=== PATIENT | male | born 2000 | race Caucasian/White ===

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

== ENCOUNTER 2023-01-23 05:22 | Emergency (ER) | payer BC, SELFPAY ==
[2023-01-23 05:24] VITALS: BP 134/94; PULSE 86; RESP 17; TEMP 36.7; O2SAT 95
--- NOTE | 2023-01-23 05:29 | ED.GENADUL_ITS ---
Discharge Plan Disposition Patient Disposition: Home Condition: Good Discharge Details Clinical Impression: Pharyngitis Primary Care Provider: MICHELLE GIVENS ED Provider: Ruben Mcghee Home Meds and New Rx's Prescriptions: No Action No Known Home Meds Discharge Instructions Instructions: Pharyngitis (ED) Additional Instructions: At this time your strep test is negative. You likely have a mild virus that is causing the irritation in the back of your throat. Please take Tylenol and Motrin as needed for pain. Drink plenty fluids and stay well-hydrated. Your symptoms will likely improve over the next 24 to 48 hours. If you notice any worsening of your symptoms, or any new symptoms such as vomiting, diarrhea, fever, chills, shortness of breath, chest pain, numbness, weakness, or fainting , please return immediately to the emergency department for reevaluation. Please follow up with your primary care provider as soon as possible for reassessment and reevaluation. As always, it was a pleasure participating in your medical care today. Referrals: MICHELLE GIVENS, [employer] [Primary Care Provider] - Medical Decision Making 22-year-old male with no significant past medical history presents today for sore throat. Symptoms been present for the last 5 days. About 4 days ago he had some chills and felt quite weak, however that has all resolved, but he is still had a persistent mild sore throat. He denies any persistent fever. He denies any cough, shortness of breath or difficulty swallowing. He does use lozenges, but these only slightly improved his symptoms. He denies any vomiting or diarrhea. He did have a sick contact which was his father who had slightly similar symptoms of a head cold about a week or so ago but this is resolved. No other complaints at this time. No other modifying factors. Exam demonstrates well-appearing male, no meningeal signs, no evidence of pe ritonsillar abscess. Minimal erythema in the posterior oropharynx. No significant tonsillar enlargement. Symptoms clinically inconsistent with Ludewig's angina, peritonsillar abscess, epiglottitis, or tonsillitis. Differential signs for mild viral etiology/upper respiratory infection versus strep throat which is less likely. Will test for strep, monitor closely and reassess. If strep is negative, I do not see any indication for antibiotic treatment/therapy at this time. No significant fatigue or organomegaly to suggest mono. 40 1 AM Strep test is negative. Patient feels well. Will discharge home. No concerning red flags clinically. Suspect viral upper respiratory infection causing mild pharyngitis. Recommend NSAIDs at home. I have extensively reviewed the treatment plan and discharge instructions with the patient. I have addressed all patient concerns at this time. The patient was made aware of what symptoms to monitor for that would warrant a return to the emergency department. Discussed the plan with the patient, they demonstrate verbal understanding and agreement with our assessment and plan at this time. The documentation in this chart was dictated using [employer] dictation software. Please excuse any dictation errors. HPI General Date/Time Provider Initiated Documentation: 01/23/23 05:23 . HPI Narrative: 22-year-old male with no significant past medical history presents today for sore throat. Symptoms been present for the last 5 days. About 4 days ago he had some chills and felt quite weak, however that has all resolved, but he is still had a persistent mild sore throat. He denies any persistent fever. He denies any cough, shortness of breath or difficulty swallowing. He does use lozenges, but these only slightly improved his symptoms. He denies any vomiting or diarrhea. He did have a sick contact which was his father who had slightly similar symptoms of a head cold about a week or so ago but this is resolved. No other complaints at this time. No other modifying factors. Related Data Home Medications Medication Instructions Recorded Confirmed hydroxyzine HCl 10 mg tablet 10 mg DAILY 01/23/23 01/23/23 Allergies Allergy/AdvReac Type Severity Reaction Status Date / Time No Known Allergies Allergy Unverified 09/28/19 22:19 General Stated Complaint: ThroatFB HAWA: 4 Review of Systems All systems reviewed & are unremarkable except as noted in HPI and below PFSH All Active Problems (Updated 01/23/23 @ 05:34 by Ruben Mcghee DO) Infected finger (Acute) Contusion of foot (Acute) Pharyngitis (Acute) Medical History (Updated 01/23/23 @ 05:34 by Ruben Mcghee DO) Strep pharyngitis several episodes Family History Mother Healthy adult Father Healthy adult Grandfather Heart disease Maternal Aunt Essential hypertension Social History Smoking/Tobacco Use Status: Never Smoking risk assessment performed?: Yes Alcohol Intake: never Drug use: Never Substance use type: does not use Do you feel safe at home: Yes Do you feel safe in your relationship?: Yes Exam Narrative Exam Narrative: 1.Const: Well-nourished, Well-developed, appearing stated age 2.Eyes: PERRL, no conjunctival injection, and symmetrical lids. 3.ENT: Atraumatic external nose and ears. Moist MM. Neck: Symmetric, trachea midline, No thyromegaly. Minimal erythema in the posterior oropharynx. No evidence of tonsillar enlargement or peritonsillar abscess. No significant cervical lymphadenopathy. No evidence of otitis media. Mild cerumen in the left TM. No evidence of Ludewig's angina 4.CVS: +S1/S2, No murmurs or gallops. Peripheral pulses 2+ and equal in all extremities. Brisk capillary refill in all extremities. 5.RESP: Unlabored respiratory effort. Clear to auscultation bilaterally. No wheezes rales or rhonchi 6.GI: Soft, Nontender/Nondistended, No hepatosplenomegaly. No guarding or rebound. 7.MSK: Normocephalic/Atraumatic, Extremities w/o deformity or ttp No cyanosis or clubbing, Normal movement of all extremities 8.Skin: Warm, Dry. No rashes or lesions. 9.Neuro: balloon tester II-XII grossly intact. Sensation grossly intact, no focal neurologic deficits. 10.Psych: (AAO) x3. Appropriate mood and affect Course Vital Signs Vital signs: Vital Signs Temperature 36.7 C 01/23/23 05:24 Pulse 86 01/23/23 05:24 Respiratory Rate 17 01/23/23 05:24 Blood Pressure 134/94 H 01/23/23 05:24 Pulse Oximetry 95 01/23/23 05:24 Temperature 36.7 C 01/23/23 05:24 Temperature Source Temporal Artery Scan 01/23/23 05:24 Pulse 86 01/23/23 05:24 Respiratory Rate 17 01/23/23 05:24 Blood Pressure 134/94 H 01/23/23 05:24 Blood Pressure Position Sitting 01/23/23 05:24 Pulse Oximetry 95 01/23/23 05:24 Oxygen Delivery Method Room Air 01/23/23 05:24 Oxygen Flow Rate 0 01/23/23 05:24 Pain Level 5 01/23/23 05:24
== END 2023-01-23 05:47 | disposition home or self-care (01) ==
PROVIDERS: Emergency Provider Student in an Organized Health Care Education/Training Program; PCP Nurse Practitioner Family
DX: J02.9 Acute pharyngitis, unspecified (principal)
CPT/HCPCS: 87880; 99283; 87081

== ENCOUNTER 2024-12-03 21:13 | Outpatient (REF) | payer BC, SELFPAY | END 2024-12-03 21:14 | disposition home or self-care (01) | LOC: LBN 21:13 | PROVIDERS: PCP Nurse Practitioner Family; Visit Provider Physician Assistant Medical | DX: J02.0 Streptococcal pharyngitis (principal); B95.4 Other streptococcus as the cause of diseases classified elsewhere | CPT/HCPCS: 87077; 87070 ==

== ENCOUNTER 2025-02-20 10:25 | Emergency (ER) | payer BC, SELFPAY ==
[2025-02-20 10:29] VITALS: BP 134/81; PULSE 75; RESP 10; TEMP 36.8; O2SAT 98
--- NOTE | 2025-02-20 11:06 | ED.GENADUL_ITS ---
Discharge Plan Disposition Patient Disposition: Home Condition: Stable Discharge Details Clinical Impression: Paronychia of finger Primary Care Provider: MICHELLE GIVENS ED Provider: Jina Pena Home Meds and New Rx's Prescriptions: New sulfamethoxazole-trimethoprim [Bactrim DS] 800-160 mg tablet 1 tab PO BID 7 Days Qty: 14 0RF No Action sertraline 50 mg tablet 50 mg PO DAILY Discharge Instructions Instructions: Paronychia ED Additional Instructions: You were seen in the emergency department today for evaluation of an infection on the tip of your finger known as a paronychia. In our department you had a full physical examination performed, your abscess was drained and it was sent for culture. You will be contacted with any results that require us to change your antibiotics. You were started on Bactrim and should take the full course of antibiotics until it is gone, even if you start to feel better. Please soak the finger at least once per day to allow drainage to continue, and use Tylenol and ibuprofen as needed for management of pain. Thank you for allowing us to be part of your care. HPI General Mode of arrival: ambulatory . Date/Time Provider Initiated Documentation: 02/20/25 10:35 . Limitations to Documentation: no limitations . Information obtained by: patient and old records reviewed . HPI Narrative: This is a 24-year-old male patient without significant past medical history presenting for evaluation of swelling and pain of his right ring finger. The patient reports that he bites his nails, and often gets infections in his fingertips. He noted the swelling started on Friday. He has not had fevers, states that he was otherwise in his normal state of health. He did take antibiotics for strep throat a few months ago but otherwise has not had any recent antibiotic use. This is an isolated complaint. Related Data Home Medications ?Medication ?Instructions ?Recorded ?Confirmed sertraline 50 mg tablet 50 mg PO DAILY 02/20/25 07/ 0 sulfamethoxazole 800 1 tab PO BID 7 days #14 tabs 02/20/25 mg-trimethoprim 160 mg tablet (Bactrim DS) Previous Rx's ?Medication ?Instructions ?Recorded sulfamethoxazole 800 1 tab PO BID 7 days #14 tabs 02/20/25 mg-trimethoprim 160 mg tablet (Bactrim DS) Allergies Allergy/AdvReac Type Severity Reaction Status Date / Time No Known Allergies Allergy Verified 02/20/25 10:32 General Stated Complaint: Cellulitis HAWA: 4 Exam Narrative Exam Narrative: Gen: Awake and alert, in no apparent distress HEENT: Non-icteric sclera Neck: Supple Lungs: No apparent respiratory distress, normal respiratory effort. CV: Appears well perfused Abdomen: Non-distended MSK: Moves 4 extremities without apparent limitation in ROM. There is swelling to the distal dorsal aspect of the fourth digit of the right hand, with swelling around the cuticle consistent with a paronychia. The redness and swelling stops just distal to the DIP. Skin: Visualized skin without rashes, cyanosis. Neuro: Normal Gait, no obvious focal deficits or facial asymmetry. Speaks in full, clear sentences. Psych: Appropriate for situation. Course Vital Signs Vital signs: Vital Signs Temperature 36.8 C 02/20/25 10:29 Pulse 75 02/20/25 10:29 Respiratory Rate 10 L 02/20/25 10:29 Blood Pressure 134/81 02/20/25 10:29 Pulse Oximetry 98 02/20/25 10:29 Temperature 36.8 C 02/20/25 10:29 Temperature Source Oral 02/20/25 10:29 Pulse 75 02/20/25 10:29 Respiratory Rate 10 L 02/20/25 10:29 Blood Pressure 134/81 02/20/25 10:29 Pulse Oximetry 98 02/20/25 10:29 Procedure Abscess Drainage Date of Procedure: 02/20/25 Time of Procedure: 10:30 Provider that performed the procedure: Jina Pena Patient Consented: Verbally Location of Exam: Upper extremity/right Indication: Abscess. Local anesthetic: Lidocaine 2%, Amount of Local Anesthetic Used (mL): 1. Sterility: Non Sterile. Procedure Prep: Hand hygiene, Alcohol and 11 blade. Technique used, incised with blade. Amount of fluid expressed: 1. Irrigation: no irrigation Packing: None. Outcome: Sucessful Procedure Description/Note: A right fourth digit paronychia was anesthetized over the skin with a small amount of lidocaine, after soaking in AN antiseptic soap and hot water solution. Following anesthesia an 11 blade was used to make a stab incision with expression of approximately 1 mL of pus and a small amount of blood. This was sent for culture. The wound was dressed with bulky gauze, patient tolerated the procedure well, though he did experience a transient sensation of nausea which was treated with oral Zofran. Medical Decision Making This is a 24-year-old male patient presenting for evaluation of finger swelling. My exam is concerning for paronychia/abscess. Certainly considered surrounding cellulitis. The patient is reassuringly without systemic symptoms nor hemodynamic instability to suggest bacteremia, sepsis. No trauma to the area to suggest fracture or dislocation. After soaking and antiseptic soap and hot water solution, the skin over the abscess was anesthetized and a stab incision with expression of purulent material was performed by this provider. The patient did become slightly n auseated while watching this procedure and provided with Zofran to good effect. The purulence was sent for culture, and I will provide the patient with Bactrim as the initial antibiosis. At this time, the patient has had a full medical evaluation and is safe for discharge to home. They are hemodynamically stable, ambulatory, and tolerating PO. They are understanding of the follow-up plan and return precautions. They left our facility without incident. Jina Pena MD [facility] All Active Problems (Updated 02/20/25 @ 11:06 by Jina Pena MD) Paronychia of finger (Acute) Contusion of foot (Acute) Infected finger (Acute) Medical History (Updated 02/20/25 @ 11:06 by Jina Pena MD) Strep pharyngitis several episodes Family History Mother Healthy adult Father Healthy adult Grandfather Heart disease Maternal Aunt Essential hypertension Social History Smoking/Tobacco Use Status: Never Smoking risk assessment performed?: Yes Alcohol Intake: never Drug use: Never Substance use type: does not use Do you feel safe at home: Yes Do you feel safe in your relationship?: Yes POCUS Exam (ED) Limited Soft Tissue Exam PROVIDER THAT PERFORMED THE STUDY: Jina Pena
[2025-02-20] MEDS: Ondansetron O.D.T. 4 MG TABEF PO (11:15)
[2025-02-20] MEDS: Lidocaine 2% Multi-Dose 20 ML VIAL IJ (11:16)
[2025-02-20] MEDS: Sulfameth/Trimeth DS TAB 1 TAB PO (11:16)
== END 2025-02-20 11:24 | disposition home or self-care (01) ==
LOC: ER 11:26
PROVIDERS: Emergency Provider Emergency Medicine; PCP Nurse Practitioner Family
DX: L03.011 Cellulitis of right finger (principal)
CPT/HCPCS: 10060; 87077; 99283; 87070; 87186; 87205; J2003

== ENCOUNTER 2025-05-05 13:06 | Outpatient (CLI) | payer BC, SELFPAY ==
--- NOTE | 2025-05-05 12:58 | DI.RAD_ITS ---
Exam(s) XR ANKLE LT COMPLETE EXAM: XR ANKLE LT COMPLETE CLINICAL HISTORY: INJURY LT ANKLE S99.912D ACHILLES TENDINITIS LEFT M76.62 PAIN LT ANKLE TECHNIQUE: 2D digital imaging was performed. Three views. COMPARISON: CR,XR XR FOOT LT COMPLETE from 09/28/2019 FINDINGS: BONES: No acute fracture is present. No bony destructive lesion is seen. JOINTS:The ankle mortise is normally aligned. SOFT TISSUE: Normal. No visible thickening of the Achilles tendon or edema in the adjacent fat. IMPRESSION: Unremarkable radiographs of the left ankle. DATA REPOSITORY: RADIATION DOSE DELIVERED:
== END 2025-05-05 13:26 ==
LOC: DI 13:06
PROVIDERS: PCP Nurse Practitioner Family; Visit Provider Nurse Practitioner Family
DX: S99.912D Unspecified injury of left ankle, subsequent encounter (principal); X58.XXXD Exposure to other specified factors, subsequent encounter; M76.62 Achilles tendinitis, left leg
CPT/HCPCS: 73610